=== PATIENT | male | born 1985 | race African-American/Black ===

== ENCOUNTER 2023-05-16 19:51 | Emergency (ER) | payer MEDICAID ==
[~2023-05-16] VITALS: Ht 185.4 cm; Wt 118.0 kg
[2023-05-16 20:07] VITALS: BP 180/113; PULSE 92; RESP 18; TEMP 98
[2023-05-16] MEDS ORDERED: KETOROLAC 30MG/ML VIAL IM ONE (22:30)
== END 2023-05-17 19:36 | disposition home or self-care (01) ==
LOC: ER 19:51
DX: M79.671 Pain in right foot (principal)
CPT/HCPCS: 73630; 99283